=== PATIENT | female | born 1945 | race Caucasian/White ===

== ENCOUNTER 2017-01-05 12:18 | Observation (INO) | payer OTHER, MEDICARE ==
[~2017-01-05] VITALS: Ht 160 cm; Wt 48.0 kg
[~2017-01-05 12:18] MED LIST: NAPR500T PO
[2017-01-05] MEDS ORDERED: ONDANSETRON 2MG/ML, 2ML IVPush ONE (13:00)
[2017-01-05] MEDS ORDERED: SODIUM CHLORIDE FLUSH 10ML SYR IVF ONE (13:00)
[2017-01-05] MEDS ORDERED: MORPHINE SULFATE 4 MG/ML, 1ML IVPush PRN (13:00)
[2017-01-05 13:09] LABS: HEMATOCRIT 26.2 % (34.6-47.8); HEMOGLOBIN 8.2 g/dL (11.7-16.4); WHITE BLOOD COUNT 7.3 x10^3/uL (3.4-10)
[2017-01-05 13:22] LABS: ASPARTATE AMINO TRANSFERASE 15 U/L (15-37); BLOOD UREA NITROGEN 12 mg/dL (7-18)
[2017-01-05 13:28] LABS: PATH.CAST-FLAG NOT PRESENT; SPERM-FLAG NOT PRESENT; SRC-FLAG NOT PRESENT; XTAL-FLAG NOT PRESENT; YLC-FLAG NOT PRESENT
[2017-01-05] MEDS ORDERED: CEFTRIAXONE PMX 1GM/50ML 50 ML ONE (13:41)
[2017-01-05] MEDS ORDERED: CEFTRIAXONE PMX 1GM/50ML 50 ML IVPB ONE (14:00)
[2017-01-05] MEDS ORDERED: SODIUM CHLORIDE 0.9% 1,000 ML IV ONE (14:03)
[2017-01-05] MEDS ORDERED: SODIUM CHLORIDE FLUSH 10ML SYR IVF PRN (14:30)
[2017-01-05] MEDS ORDERED: ACETAMINOPHEN 325 MG TABLET PO PRN (15:00)
[2017-01-05] MEDS ORDERED: ENOXAPARIN 40 MG/0.4 ML SQ SCH (17:30)
[2017-01-05] MEDS ORDERED: CEFTRIAXONE PMX 1GM/50ML 50 ML IV SCH (17:30)
[2017-01-05 18:00] VITALS: BP 125/75
[2017-01-05] MEDS: NAPROXEN 500 MG TABLET PO PRN (20:22)
[2017-01-05 20:37] VITALS: BP 125/79
[2017-01-05] MEDS: ENOXAPARIN 30 MG/0.3 ML SQ SCH (20:38)
[2017-01-06] MEDS: CEFTRIAXONE PMX 1GM/50ML 50 ML IV SCH ×2 (01:14→14:49)
[2017-01-06 02:35] VITALS: BP 114/83
[2017-01-06 05:15] LABS: HEMATOCRIT 23.8 % (34.6-47.8); HEMOGLOBIN 7.6 g/dL (11.7-16.4); WHITE BLOOD COUNT 5.9 x10^3/uL (3.4-10)
[2017-01-06 05:42] LABS: BLOOD UREA NITROGEN 10 mg/dL (7-18)
[2017-01-06 07:40] VITALS: BP 129/85
[2017-01-06] MEDS: FERROUS SULFATE 325 MG TABLET PO SCH ×2 (09:21→16:21)
[2017-01-06 10:12] LABS: OCCBLD OBC PASS
[2017-01-06] MEDS: OMEPRAZOLE 20 MG CAPSULE.DR PO SCH (11:12)
[2017-01-06] MEDS: NAPROXEN 500 MG TABLET PO PRN ×2 (11:12→21:16)
[2017-01-06 14:07] VITALS: BP 119/67
[2017-01-06 19:41] VITALS: BP 126/77
[2017-01-06] MEDS ORDERED: ACETAMINOPHEN 325 MG TABLET PO PRN (20:00)
[2017-01-06] MEDS: ENOXAPARIN 30 MG/0.3 ML SQ SCH (21:16)
[2017-01-07] MEDS: CEFTRIAXONE PMX 1GM/50ML 50 ML IV SCH (02:12)
[2017-01-07 02:14] VITALS: BP 136/77
[2017-01-07 06:10] LABS: HEMATOCRIT 25.8 % (34.6-47.8); HEMOGLOBIN 8.2 g/dL (11.7-16.4)
[2017-01-07 08:26] VITALS: BP 130/81
[2017-01-07] MEDS: FERROUS SULFATE 325 MG TABLET PO SCH (09:16)
[2017-01-07] MEDS: OMEPRAZOLE 20 MG CAPSULE.DR PO SCH (09:16)
[2017-01-07] MEDS ORDERED: FERR324T5 PO (10:48)
[2017-01-07] MEDS ORDERED: DOCU-131 PO (10:48)
[2017-01-10 04:07] LABS: DEAMIDATED GLIADIN IGA 8 units (0-19); DEAMIDATED GLIADIN IGG 27 units (0-19); ENDOMYSIAL IGA Negative (Negative); IMMUNOGLOBULIN A 207 mg/dL (64-422)
== END 2017-01-07 15:33 | disposition home or self-care (01) ==
LOC: ED 12:34 → EDIP 13:49 → INTOOBSV 13:49 → 3NW 17:09
PROVIDERS: ADMIT Family Medicine; ATTEND Family Medicine
DX: N39.0 Urinary tract infection, site not specified (principal); D50.9 Iron deficiency anemia, unspecified; I10 Essential (primary) hypertension; M06.9 Rheumatoid arthritis, unspecified; G89.29 Other chronic pain; R19.7 Diarrhea, unspecified; K90.0 Celiac disease; Z82.49 Family history of ischemic heart disease and other diseases of the circulatory system; Z96.652 Presence of left artificial knee joint; Z96.643 Presence of artificial hip joint, bilateral
CPT/HCPCS: 36415; 80048; 80053; 81001; 82272; 82550; 82728; 82784; 83516; 83540; 83550; 85025; 86255; 87040; 87077; 87086; 87186; 87324; 96361; 96365; 96372; 96375; 99285; G0378; J0696; J1650; J7030